=== PATIENT | female | born 1990 | race African-American/Black ===

== ENCOUNTER 2017-12-23 19:29 | Emergency (ER) | payer BC ==
[~2017-12-23] VITALS: Ht 162.6 cm; Wt 56.7 kg
[~2017-12-23 19:29] MED LIST: ACETAMINOPHEN325 M1 PO; IBUPROFEN 200200 M1 PO; IBUPROFEN 600600 M1; SENNA PO
[2017-12-23] MEDS ORDERED: CENTANY30 GM TOP (19:53)
== END 2017-12-23 20:04 | disposition home or self-care (01) ==
LOC: ER 19:29
DX: T23.212A Burn of second degree of left thumb (nail), initial encounter (principal); F17.210 Nicotine dependence, cigarettes, uncomplicated; Z88.0 Allergy status to penicillin; Z88.1 Allergy status to other antibiotic agents; X58.XXXA Exposure to other specified factors, initial encounter; Y93.G3 Activity, cooking and baking; Y92.89 Other specified places as the place of occurrence of the external cause; Y99.8 Other external cause status

== ENCOUNTER 2020-06-07 17:48 | Emergency (ER) | payer OTHER ==
[~2020-06-07] VITALS: Ht 160 cm; Wt 53.1 kg
[~2020-06-07 17:48] MED LIST changes: +CENTANY30 GM TOP
[2020-06-07 19:18] VITALS: BP 106/72
== END 2020-06-07 19:22 | disposition home or self-care (01) ==
LOC: ER 17:48
DX: S61.210A Laceration without foreign body of right index finger without damage to nail, initial encounter (principal); M25.531 Pain in right wrist; F17.210 Nicotine dependence, cigarettes, uncomplicated; Z88.0 Allergy status to penicillin; Z88.1 Allergy status to other antibiotic agents; Z88.8 Allergy status to other drugs, medicaments and biological substances; W26.0XXA Contact with knife, initial encounter; Y93.89 Activity, other specified; Y92.89 Other specified places as the place of occurrence of the external cause; Y99.8 Other external cause status

== ENCOUNTER 2020-06-16 14:32 | Emergency (ER) | payer OTHER ==
[~2020-06-16] VITALS: Ht 162.6 cm; Wt 54.4 kg
[2020-06-16 14:36] VITALS: BP 109/57
== END 2020-06-16 15:50 | disposition home or self-care (01) ==
LOC: ER 14:32
DX: S61.411D Laceration without foreign body of right hand, subsequent encounter (principal); Z53.21 Procedure and treatment not carried out due to patient leaving prior to being seen by health care provider; X58.XXXD Exposure to other specified factors, subsequent encounter